=== PATIENT | male | born 1935 | race Caucasian/White ===

== ENCOUNTER → 2017-11-04 | Outpatient (CLI) | payer MEDICARE, OTHER ==
[~2017-11-04] MED LIST: ADULT LOW DOSE81 MG PO; ALTACE10 MG PO; ASPIRIN81 M2 PO; AVODART0.5 MG PO; COLESTID1 GM PO; COLESTIPOL; FLORINEF ACETA0.1 MG PO; FOLIC ACID1 MG PO; HYDROCODON-ACE1 EAC7 PO; JANUMET 50-1,01 EACH PO; JANUMET 50-5001 EACH PO; LOPRESSOR25 PO; MELATONIN3 MG PO; NEURONTIN 300300 M1 PO; NORVASC5 MG PO; PERCOCET 5-3251 EACH PO; PLAVIX 75 MG TA75 M1 PO; PRAVACHOL40 MG PO; PROSCAR 5MG TABL5 MG PO; TURMERIC500 M2 PO; VISION FORMULA1 EAC1 PO; VOLTAREN GEL 1100 G2 TOP; ZETIA10 MG PO
--- NOTE | 2017-11-19 13:59 | PAINCON ---
[facility] [address] [place] [address] PAIN MANAGEMENT CONSULTATION Name: MOLLY EVERETT [facility] JimenezFrantz#: [id number] Admission: 11/04/17 Attend Phys: Nicolle Tate MD Discharge: Date of : 36 Report #: [id number] THIS REPORT FOR: //name// CC: Beth Prado DATE OF SERVICE: 11/04/2017 CHIEF COMPLAINT: Low back pain and pain down into both hips. FOLLOWUP HISTORY: The patient is an 82-year-old gentleman who has been referred to the pain clinic for evaluation. The patient has pain and discomfort in the low back area. He is experiencing pain, which is radiating around into both hip areas. He describes it as a constant pain with some burning as well as numbness. He has undergone physical therapy. He has been experiencing the tingling sensation throughout both his hips. Occasionally, he experienced some weakness down into both legs, left side greater than right. He has been provided gabapentin. He is not sure to what level this medication is helpful. He has stopped participating in physical therapy at this juncture. He did not feel like he was getting a significant amount of relief. He actually felt like it made him worse. He did participate for about 14 sessions. He has undergone chiropractic treatment as well. He does note some pain and discomfort, if he presses in the low back area. ALLERGIES: VICODIN CAUSED SOME HALLUCINATIONS SIDE EFFECTS. CURRENT MEDICATIONS: Aspirin 81 mg 1 p.o. daily, Plavix 75 mg daily, Proscar 5 mg daily, folic acid 1 mg daily, Neurontin 300 mg b.i.d., melatonin 3 mg at bedtime, Lopressor 25 mg, Pravachol 40 mg, Altace 2.5 mg daily, Janumet 50/100 mg tablets, turmeric 500 mg, multivitamin. PAST MEDICAL HISTORY: Diverticulosis, peptic ulcer disease, orthostatic hypotension, gastroesophageal reflux, myocardial infarct, type 2 diabetes, and history of colon polyp. PAST SURGICAL HISTORY: Tonsillectomy in 1946; cholecystectomy in 1984; cardiac stent x 2 in 2000; cataract, right eye in 2013; prostate biopsy; and colonoscopy on 10/02/2016. FAMILY HISTORY: Mother is unknown. Father is unknown. Spouse is alive, age 71. Daughter alive, in good health. Son alive, in good health. FAMILY HISTORY: Diabetes, cancer, coronary artery disease, hypertension, 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 He is , lives with his . REVIEW OF SYSTEMS: Generally good health, fatigue, weakness, wears glasses, hearing loss/ringing in the ears, swelling of feet, ankles, hands, frequent urination, incontinence, dribbling, sexual difficulties, back pain, numbness and tingling sensation, memory loss, confusion, 12-point review of systems. LABORATORY DATA: MRI dated 10/17/2017: 1. L1-L2, there is a right posterior paracentral disk extrusion extending cephalad from the disk space. This causes mild ventral effacement of thecal sac, but does not demonstrate significant effect upon the neural elements. 2. L2-L3, there is moderate circumferential disk bulge. Advanced discogenic degenerative changes are present with extensive endplate signal changes. There is mild hypertrophic facet arthrosis and ligamentum flavum hypertrophy. These findings collectively producing mild overall central canal stenosis as well as a mild left-sided neural foraminal narrowing. There is mild left-sided and minimal right-sided lateral recess enhancement or effacement. 3. L3-L4, there is mild hypertrophic facet arthrosis and ligamentum flavum hypertrophy. There is moderate posterior endplate spurring. Combination with aforementioned mild degenerative retrolisthesis. This finding produces mild ventral effacement of the thecal sac and left lateral recess. There is unbg-au-migmyqty bilateral neural foraminal narrowing. 4. L4-L5, there is advanced hypertrophic facet arthrosis and moderate ligamentum flavum hypertrophy. There is moderate posterior endplate spurring as well as nhwe-zm-rlqbqtoc circumferential disk bulge. There is some extension of the disk bulge into the foraminal locations bilaterally. This finding collectively produces moderate right-sided and gxbo-qx-zrrodihd left-sided neural foraminal narrowing. There is also moderate right lateral effacement of thecal sac secondary to the hypertrophic facet arthrosis. 5. At the L5-S1 level, there is moderate posterior endplate spurring with circumferential disc bulge. There is also moderate hypertrophic facet arthrosis and mild ligamentum flavum hypertrophy. These findings collectively produce moderate right-sided and mild left-sided neural foraminal narrowing. There is moderate right lateral recess effacement. PAIN CLINIC ASSESSMENT: 1. The patient is not being treated for rheumatoid arthritis, does have some arthritic changes in the lower portion of his back as evidenced on an MRI. 2. Height 5 feet 9 inches, weight 177 pounds, BMI is 26. 3. Vital signs: Blood pressure 152/89, heart rate 64, respiratory rate 16, room air saturation 96%, temperature 98.0. 4. Pain intensity 08/16. 5. Fall risk. The patient has not fallen in the last 3 months. 6. Blood thinner. The patient is on Plavix. 7. Opioids therapy greater than 6 weeks. The [place] [address] PAIN MANAGEMENT CONSULTATION Name: MOLLY EVERETT Room: [facility]#: [id number] Admission: 11/04/17 Attend Phys: Nicolle Tate MD Discharge: Date of : 36 Report #: [id number] therapy greater than 6 weeks. 8. Risk assessment tool. 9. Functional assessment tool. 10. Recreational drug use. The patient denies use of recreational drugs. 11. Tobacco: The patient denies use of tobacco at this juncture. 12. Alcohol: The patient denies use of alcoholic beverages at this juncture. PHYSICAL EXAMINATION: GENERAL: The patient is a well-developed, well-nourished white male. Appears his stated age. He is alert and oriented x 3. HEENT: Normocephalic, atraumatic. Extraocular eye muscles intact. Sclerae is nonicteric. Hearing is within normal limits. The patient has bilateral hearing aids. Mucous membranes are moist. NECK: Without adenopathy, JVD or bruits. CHEST: Clear to auscultation. HEART: Regular rate. S1, S2. ABDOMEN: Nontender. EXTREMITIES: Upper extremities, judged to be 5/5 for the major muscle groups in the upper extremity. No sensory changes. Muscle bulk is symmetrical. MUSCULOSKELETAL: Without significant scoliosis, kyphosis, or lordosis. The patient has some mid back discomfort in the mid thoracic area, also has some pain and discomfort in the lower portion of his back with pain radiating down into his left as well as into his right buttocks with some stabbing sensation as well as some needles and pins discomfort. IMPRESSION: 1. Low back pain with pain radiating down into the left as well as into the right buttocks. 2. Diabetes type 2. 3. Coronary artery disease -- myocardial infarct. 4. History of diverticulosis. 5. Peptic ulcer disease. 5. Gastroesophageal reflux disease. 6. Hypertension. RECOMMENDATIONS: We discussed treatment options with the patient. He has continued to have pain and discomfort in the lower portion of his back. Has some symptomatology consistent with spinal stenosis in his MRI findings. Has pain and discomfort, which is radiating to his left and right hip, left side more problematic than right. Has noted some weakness in his lower extremity. At this juncture, we will consider an epidural steroid injection. Risks and benefits of an epidural steroid injection were discussed. Possible complications of the procedure reviewed with the patient. He will return to the pain clinic at which time we will consider pursuing an epidural steroid injection to improve the low back pain and discomfort, which he is experiencing. He is also experiencing some myofascial pain. We may consider the injection of [facility] [address] [place] [address] PAIN MANAGEMENT CONSULTATION Name: MOLLY EVERETT [facility] [id number] Admission: 11/04/17 Attend Phys: Nicolle Tate MD Discharge: Date of : 36 Report #: [id number] trigger points in this area as well. The patient will return at which time we will then continue to evaluate whether or not trigger point injections or an epidural steroid injection, at this juncture would be the most efficacious. We would like to thank you for letting us participate in his care. We hope he continues to improve. <ELECTRONICALLY SIGNED> By: Nicolle Tate MD 11/19/17 1359 1502 2113N. Moustapha Tate MD /[facility]
== END ==
LOC: M.PC 00:08
DX: M54.5 Low back pain (principal); M25.552 Pain in left hip; M25.551 Pain in right hip; E11.9 Type 2 diabetes mellitus without complications; I10 Essential (primary) hypertension; I25.10 Atherosclerotic heart disease of native coronary artery without angina pectoris; K21.9 Gastro-esophageal reflux disease without esophagitis; K27.9 Peptic ulcer, site unspecified, unspecified as acute or chronic, without hemorrhage or perforation

== ENCOUNTER → 2017-11-11 | Outpatient (CLI) | payer MEDICARE, OTHER ==
--- NOTE | 2017-11-19 14:14 | PAINCON ---
[address] [address] PAIN MANAGEMENT CONSULTATION Name: MOLLY EVERETT Room: [facility] [place] BarbaraTessaDanyaTessa#: [id number] Admission: 11/11/17 Attend Phys: Nicolle Tate MD Discharge: Date of : 36 Report #: [id number] THIS REPORT FOR: //name// CC: Beth Tate DATE OF SERVICE: 11/11/2017 FOLLOWUP COMPLAINT: Pain down into the hips. FOLLOWUP HISTORY: The patient is an 82-year-old gentleman who has been seen in the Pain Clinic because of pain and discomfort in the low back area. He has been experiencing pain, which is radiating down into both hips. Describes it is constant. There is some burning component of it as well. He has already undergone physical therapy. His pain continues to remain. Has some tingling sensation throughout both of his hips. Occasionally, he experiences some pain and weakness down in both legs. Left is worse when that problem occurs. Gabapentin has been taken b.i.d. He is not sure that he has noticed a significant change since starting this medication. He is no longer going to physical therapy given he continued to have pain in spite of the treatment course. Notes that certain areas of pressure in his low back reproduces pain and discomfort. ALLERGIES: VICODIN CAUSES SOME HALLUCINATION AND SIDE EFFECTS. CURRENT MEDICATIONS: Aspirin 81 mg 1 p.o. daily, Plavix 75 mg daily, Proscar 5 mg daily, folic acid 1 mg daily, Neurontin 300 mg b.i.d., melatonin 3 mg at bedtime, Lopressor 25 mg, Pravachol 40 mg, Altace 2.5 mg daily, Janumet 50/100 mg tablets, turmeric 500 mg, multivitamin. PAIN CLINIC ASSESSMENT: 1. The patient is not being treated for rheumatoid arthritis, does have some arthritic changes in his lower back evidenced on MRI. 2. Height 5 feet 9 inches, weight 176 pounds, BMI is 27. 3. VITAL SIGNS: Blood pressure is 181/93, heart rate 63, respiratory rate 16, room air saturation 99%, temperature 97.8. Pain intensity at 2/10 when sitting, rises to 7-8 in the morning when he awakens. 4. Fall risk. The patient has not fallen in the last 3 months. 5. Blood thinner. The patient is not on Plavix or blood thinning agent. 6. Opioid therapy greater than 6 weeks. The patient is not on opioid therapy for greater than 6 weeks. 7. Risk assessment tool. 8. Functional assessment tool. 9. Recreational drug use. The patient denies use of recreational drugs. 10. Tobacco: The patient denies use of tobacco at this juncture. 11. Alcohol: The patient [place] [address] PAIN MANAGEMENT CONSULTATION Name: MOLLY EVERETT Room: [facility]#: [id number] Admission: 11/11/17 Attend Phys: Nicolle Tate MD Discharge: Date of : 36 Report #: [id number] PHYSICAL EXAMINATION: GENERAL: The patient is a well-developed, well-nourished white male. Appears his stated age. He is alert and oriented x 3. Speech is fluent. HEENT: Normocephalic, atraumatic. Extraocular eye muscles intact. Sclerae nonicteric. Hearing is within normal limits. Mucous membranes are moist. NECK: Without adenopathy, JVD or bruits. CHEST: Clear to auscultation. HEART: Regular rate. S1, S2. ABDOMEN: Nontender. EXTREMITIES: Upper extremities showed to be 5/5 for the major muscle groups in the upper extremity. No sensory changes noted. Muscle bulk is symmetrical. ADDENDUM MUSCULOSKELETAL: Without significant scoliosis, kyphosis or lordosis. The patient has some mild discomfort in the thoracic area. The patient has some pain and discomfort, which is radiating down the lateral side of his buttocks. IMPRESSION: 1. Low back pain with radiation down to the left as well as into the right buttocks area -- myofascial facial. 2. Diabetes type 2. 3. Coronary artery disease- -- myocardial infarct history. 4. History of diverticulosis. 5. Peptic ulcer disease. 6. Gastroesophageal reflux disease. 7. Hypertension. RECOMMENDATIONS: We discussed treatment options with the patient. Risks and benefits of a myofascial trigger point was discussed. The patient has pain and discomfort in the left lower back. Palpation in the area of the latissimus dorsi, gluteus marquis and posterior iliac spine areas are noted. Palpation in this area reproduces pain and discomfort. We discussed use of a trigger point injection to help with this. The patient elects to proceed with the injection. Possible complications, which include but are not limited to infection, worsening of pain, no improvement in pain, bleeding and infection were discussed. The patient elects to proceed. PROCEDURE NOTE: He was then assisted in getting on the table. He was sitting perpendicular to the table with his feet resting on the chair. His back was sterilely prepped with a chlorhexidine solution. Palpation reproduces pain and discomfort and a trigger point noted in the area of the posterior superior iliac spine and the gluteus marquis. A 25-gauge needle was then advanced to the area of discomfort. The patient states that this did reproduce his discomfort. A total of 80 mg of Depo-Medrol with 10 mL of 0.5% bupivacaine was used to inject [facility] [address] [place] [address] PAIN MANAGEMENT CONSULTATION Name: KARLOSMOLLY House Ebony Room: [facility]#: [id number] Admission: 11/11/17 Attend Phys: Nicolle Tate MD Discharge: Date of : 36 Report #: [id number] this area. His pain decreased to 0 at the time of discharge. He will follow up in the future as needed. He will also monitor his blood sugars. We explained that steroid medications can temporarily elevate blood sugars. States that he would watch and manage this. We would like to thank you for letting us participate in his care. We hope he continues to improve. <ELECTRONICALLY SIGNED> By: Nicolle Tate MD 11/19/17 1414 1555 1807N. Moustapha Tate MD /[facility]
== END ==
LOC: M.PC 01:59
DX: M79.1 Myalgia (principal); M25.551 Pain in right hip; M25.552 Pain in left hip; Z88.8 Allergy status to other drugs, medicaments and biological substances; Z79.899 Other long term (current) drug therapy; Z79.01 Long term (current) use of anticoagulants; F11.20 Opioid dependence, uncomplicated; M54.5 Low back pain; E11.9 Type 2 diabetes mellitus without complications; I25.10 Atherosclerotic heart disease of native coronary artery without angina pectoris; I21.3 ST elevation (STEMI) myocardial infarction of unspecified site; K21.9 Gastro-esophageal reflux disease without esophagitis; I10 Essential (primary) hypertension; K27.9 Peptic ulcer, site unspecified, unspecified as acute or chronic, without hemorrhage or perforation

== ENCOUNTER → 2017-11-20 | Outpatient (CLI) | payer MEDICARE, OTHER ==
--- NOTE | 2017-12-04 15:18 | PAINCON ---
[address] [address] PAIN MANAGEMENT CONSULTATION Name: MOLLY EVERETT Room: [facility] Shannon#: [id number] Admission: 11/20/17 Attend Phys: Nicolle Tate MD Discharge: Date of : 36 Report #: [id number] THIS REPORT FOR: //name// CC: Beth Tate DATE OF SERVICE: 11/20/2017 FOLLOWUP COMPLAINT: Pain in the back is better, but still there it is more dull and it goes across to the other side as well. FOLLOWUP HISTORY: The patient is an 82-year-old gentleman who has been seen in the pain clinic because of pain and discomfort in his low back area. As you recall, he has undergone physical therapy. He has been having pain and discomfort in both hips. Has some pain in the low back area, which was felt to be myofascial in nature, underwent a trigger point injection at the last visit. Noted some improvement in his pain. He notes that the quality of the pain has changed. Palpation in the lower portion of his back and still reproduced pain and discomfort. He has had no complications from that. He does have diabetes. He did not notice any real changes in his sensorium. He does not routinely measure his blood sugars. Overall, he feels that there was probably no real change in his blood sugars. He states that his A1c at the last visit was about 7. Feels that the Neurontin is helpful. He does not have any problems with it. He has had physical therapy, but tries to continue do stretching, but he does not continue to go to physical therapy at this point. ALLERGIES: VICODIN CAUSES SOME HALLUCINATION SIDE EFFECTS. MEDICATIONS: Aspirin 81 mg 1 p.o. daily, Plavix 75 mg daily, Proscar 5 mg daily, folic acid 1 mg daily, Neurontin 300 mg b.i.d., melatonin 3 mg at bedtime, Lopressor 25 mg, Pravachol 40 mg, Altace, 2.5 mg daily, Janumet 50/100, turmeric 500 mg, multivitamin and Zetia 10 mg. PAIN CLINIC ASSESSMENT: 1. The patient is not being treated for rheumatoid arthritis, but does have some arthritic changes in lower back evidenced by MRI. 2. Height 5 feet 5 inches, weight 174 pounds, BMI is 28. 3. Vital signs: Blood pressure 143/70, heart rate 68, respiratory rate 16, room air saturation 95% and temperature 97.5. 4. Pain score, the patient rates his pain as a 2/10. 5. Fall risk. The patient has not fallen in the last 3 months. 6. Blood thinner. The patient is on Plavix a blood thinning agent. 7. Opioid therapy greater than 6 weeks. The patient is not on her opioid therapy. 8. Risk assessment tool, low for opioids. 9. [place] [address] PAIN MANAGEMENT CONSULTATION Name: MOLLY EVERETT Room: [facility]#: [id number] Admission: 11/20/17 Attend Phys: Nicolle Tate MD Discharge: Date of : 36 Report #: [id number] 10. Recreational drug use. The patient denies use of recreational drugs. 11. Tobacco: The patient denies use of tobacco. 12. Alcohol: The patient denies use of alcoholic beverages. PHYSICAL EXAMINATION: GENERAL: The patient is a well-developed, well-nourished white male. He is alert and oriented x 3. Affect is appropriate. Speech is fluent. HEENT: Normocephalic, atraumatic. Extraocular muscles intact. The patient wears glasses. Sclerae nonicteric. Good range of motion. LUNGS: Clear to auscultation without rhonchi. HEART: Regular rate. ABDOMEN: Nontender. MUSCULOSKELETAL: Without significant scoliosis, kyphosis or lordosis. The patient has pain and discomfort in the left posterior superior iliac spine area in the buttocks. Palpation in this area reproduces pain and discomfort and similar pain is noted on the contralateral right side. Palpation in the posterior superior iliac spine area causes reproduction of this pain, which is myofascial in nature. Upper extremities within normal limits, 5/5. Lower extremity muscle strength is generally 5/5. ASSESSMENT: 1. Low back pain with pain on the right and left side, which is myofascial in nature. 2. Type 2 diabetes. 3. Coronary artery disease, status post myocardial infarction history. 4. History of diverticulitis. 5. Peptic ulcer disease. 6. Gastroesophageal reflux history. 7. Hypertension. RECOMMENDATIONS: We discussed treatment options with the patient. Risks and benefits of the procedure were again discussed. The patient appears to have pain, which is more myofascial in nature. Palpation can reproduce this pain. He is on Plavix at this juncture. He will stop taking the Plavix and return to the pain clinic for additional treatment. He has been advised on use of a tennis ball to help massage this areas. Sometimes massaged with the patient lying on the floor or rolling up and down the wall can be helpful. He will stop this medication and return to the pain clinic at which time he will then undergo trigger point injections to the left and right side. We would like to thank you for letting us participate in his care. We hope he continues to improve. <ELECTRONICALLY SIGNED> By: Nicolle Tate MD 12/04/17 1518 [id number] 1120N. Moustapha Tate MD /nt
== END ==
LOC: M.PC 01:09
DX: I10 Essential (primary) hypertension (principal); E11.9 Type 2 diabetes mellitus without complications; I25.10 Atherosclerotic heart disease of native coronary artery without angina pectoris; M54.42 Lumbago with sciatica, left side; M79.1 Myalgia; K27.9 Peptic ulcer, site unspecified, unspecified as acute or chronic, without hemorrhage or perforation

== ENCOUNTER → 2017-11-27 | Outpatient (CLI) | payer MEDICARE, OTHER ==
--- NOTE | 2017-12-04 15:18 | PAINCON ---
[facility] [address] [place] [address] PAIN MANAGEMENT CONSULTATION Name: MOLLY EVERETT Room: [facility] BarbaraFrantz#: [id number] Admission: 11/27/17 Attend Phys: Nicolle Tate MD Discharge: Date of : 36 Report #: [id number] THIS REPORT FOR: //name// CC: Beth Tate DATE OF SERVICE: 11/27/2017 PRIMARY CARE PHYSICIAN: Dr. Beth Cardenas. FOLLOWUP COMPLAINT: Pain improved somewhat, but I am still having pain in the side and back. FOLLOWUP HISTORY: The patient is an 82-year-old gentleman who has been seen in the pain clinic because of some low back pain and discomfort. Notes that the pain is still problematic on his left hip area, left side greater than right. Notes it as a dull piercing type of pain. It has changed its character. There is no longer sharp. Feels that the gabapentin is helpful. He has had no complication from the trigger point injection, but does continue to have discomfort, which he feels problematic and interferes with his activities of daily living. He would like to proceed with another treatment at this point. As you recall, he has undergone physical therapy. He rates his pain as a 1/10 today when he is not active. He does have diabetes. He did not notice a significant change in his blood sugars after the last injection. He continues to use the Neurontin. We encouraged him to continue with stretching exercises. ALLERGIES: VICODIN CAUSES SOME HALLUCINATION AND SIDE EFFECTS. CURRENT MEDICATIONS: Aspirin 81 mg 1 p.o. daily, Plavix 75 mg daily. The patient has stopped this medication prior to coming to the Pain Clinic today, Proscar 5 mg daily, folic acid 1 mg daily, Neurontin 300 mg b.i.d., melatonin 3 mg at bedtime, Lopressor 25 mg, Pravachol 40 mg, Altace 2.5 mg daily, Janumet 50/100, turmeric 500 mg, multivitamin, Zetia 10 mg. PAIN CLINIC ASSESSMENT: 1. The patient is not being treated for osteoarthritis. Does have some arthritic changes in his low back by way of MRI. 2. Height 5 feet 6 inches, weight 173 pounds, BMI is 25. 3. Vital signs: Blood pressure 121/76, heart rate 69, respiratory rate 16, room air saturation 96% and temperature 97.7. Pain score, the patient rates as a 1/10. 4. Fall risk. The patient has not fallen in the last 3 months. 5. Blood thinner. The patient is on Plavix and has stopped taking this medication with the thought of having injection today. 6. Opioid therapy greater than 6 weeks. The patient is not on opioid therapy. 7. Risk assessment tool, [place] [address] PAIN MANAGEMENT CONSULTATION Name: MOLLY EVERETT Room: [facility]#: [id number] Admission: 11/27/17 Attend Phys: Nicolle Tate MD Discharge: Date of : 36 Report #: [id number] 8. Functional assessment tool. 9. Recreational drug use. The patient denies use of recreational drugs. 10. Tobacco: The patient denies use of tobacco. 11. Alcohol: The patient denies use of alcoholic beverages. PHYSICAL EXAMINATION: GENERAL: The patient is a well-developed, well-nourished white male. Appears his stated age. He is alert and oriented x 3. His affect is appropriate. Speech is fluent. HEENT: Normocephalic, atraumatic. Extraocular eye muscles intact. Sclerae nonicteric. The patient is wearing glasses. Good range of motion of his neck. LUNGS: Clear to auscultation without rhonchi. HEART: Regular rate. ABDOMEN: Nontender. MUSCULOSKELETAL: Without significant scoliosis, kyphosis, lordosis. The patient is able to move quite easily. Has some pain and discomfort in the area of the left posterior superior iliac spine area. Palpation in this area does reproduce a component of his pain. The patient has some pain on the contralateral right side, but feels that the left side is that which is most problematic. NEUROLOGICAL: Upper extremity strength is judged to be 5/5 with the symmetry without neurological deficits. Lower extremity muscle strength 5/5. IMPRESSION: 1. Low back pain on the left and right side. Left side, most problematic at this juncture. 2. Type 2 diabetes. 3. Coronary artery disease, status post myocardial infarct history. 4. History of diverticulitis. 5. Peptic ulcer disease. 6. Gastroesophageal reflux history. 7. Hypertension. RECOMMENDATIONS: We discussed treatment options with the patient. Risks and benefits of trigger point injections were discussed. Possible complications of these, which could include infection, increased muscle soreness, improvement in pain, no improvement in pain, exacerbation of blood glucose levels. The patient states that he feels that the pain is still problematic and would like to proceed with this. He has elected to undergo the treatment today. We discussed the possible complication as disclosed above. He elects to proceed. He was taken to the procedure area. He was assisted in getting on the fluoroscopy table. He was sitting perpendicular to the table. Care was placed under his feet. He leaned forward. The trigger point was noted in the area of the posterior superior iliac spine on the left. The patient states that this did reproduce his discomfort. A 25-gauge needle was then advanced into the area of discomfort. Total of 80 mg Depo-Medrol with 10 mL of 0.25% [place] [address] PAIN MANAGEMENT CONSULTATION Name: MOLLY EVERETT Room: [facility]#: [id number] Admission: 11/27/17 Attend Phys: Nicolle Tate MD Discharge: Date of : 36 Report #: [id number] injected. The patient tolerated the procedure well. There were no complications. He remained in the pain clinic for an appropriate amount of time. He will follow up in the future as needed. We would like to thank you for letting us participate in his care. The patient will renew his use of Plavix. <ELECTRONICALLY SIGNED> By: Nicolle Tate MD 12/04/17 1518 [id number]. Moustapha Tate MD /nt
== END | disposition home or self-care (01) ==
LOC: M.PC 03:57
DX: M79.1 Myalgia (principal); M54.5 Low back pain; E11.9 Type 2 diabetes mellitus without complications; I10 Essential (primary) hypertension; I25.10 Atherosclerotic heart disease of native coronary artery without angina pectoris; K21.9 Gastro-esophageal reflux disease without esophagitis; Z87.19 Personal history of other diseases of the digestive system; Z79.899 Other long term (current) drug therapy; Z79.82 Long term (current) use of aspirin; Z88.8 Allergy status to other drugs, medicaments and biological substances; Z98.890 Other specified postprocedural states

== ENCOUNTER → 2017-12-09 | Outpatient (CLI) | payer MEDICARE, OTHER ==
--- NOTE | 2018-01-07 14:16 | PAINCON ---
[facility] [address] [place] [address] PAIN MANAGEMENT CONSULTATION Name: MOLLY EVERETT Room: [facility] Ortega#: [id number] Admission: 12/09/17 Attend Phys: Nicolle Tate MD Discharge: Date of : 36 Report #: [id number] THIS REPORT FOR: //name// CC: Beth Tate DATE OF SERVICE: 12/09/2017 FOLLOWUP COMPLAINT: "Pain has improved since the last visit, but I still felt like there is weakness in my legs." FOLLOWUP HISTORY: The patient is an 82-year-old gentleman who has been seen in the pain clinic because of myofascial pain involving the low back area. He has undergone trigger point injections to the myofascial trigger points in the low back area. Overall, he feels that things have improved somewhat. He continues to have pain, which he rates as a 4/10. He feels that there is some weakness in his legs. Sometimes sitting in certain position, he notes some pain and discomfort in his hips bilaterally. Feels that the gabapentin medication is helpful. Overall, he has had no complications from the procedure. He states that he has undergone physical therapy in the past and will try to reproduce some of the exercise that he was given. Does feel like his diabetes is stable. Has had no significant changes in his blood as a result of the trigger point injections using triamcinolone. Continues to try to do some stretching exercises. ALLERGIES: VICODIN CAUSED SOME HALLUCINATIONS AND SIDE EFFECTS. MEDICATIONS: Aspirin 81 mg p.o. daily, Plavix 75 mg ____. Proscar 5 mg daily, folic acid 1 mg daily, Neurontin 300 mg b.i.d., melatonin 3 mg at bedtime, Lopressor 25 mg, Pravachol 40 mg, Altace 2.5 mg daily, Janumet 5/150 ____, Turmeric 500 mg, multivitamin, Zetia 10 mg. PAIN CLINIC ASSESSMENT: 1. The patient has not been treated for osteoarthritis. Does have some arthritic changes in his low back by the MRI evaluation. Height was 5 feet 9 inches, weight 171 pounds, BMI is 25.3. 2. Vital signs: Blood pressure 135/60, heart rate 73, respiratory rate 16, room air saturation is 94%, temperature 98.8. 3. Fall risk. The patient has not fallen in the last 3 months. 4. Blood thinner. The patient is on Plavix medication, continues to use it as prescribed. 5. Opioid. The patient is not on a regular opioid medications. 6. Risk assessment tool. 7. Opioid risk low. 8. Functional assessment tool. 9. Recreational drug use. The patient denies [place] [address] PAIN MANAGEMENT CONSULTATION Name: MOLLY EVERETT Room: [facility]#: [id number] Admission: 12/09/17 Attend Phys: Nicolle Tate MD Discharge: Date of : 36 Report #: [id number] 10. Tobacco: The patient denies use of tobacco. 11. Alcohol. The patient denies use of alcoholic beverages. PHYSICAL EXAMINATION: GENERAL: The patient is a well-developed, well-nourished white male. Appears his stated age. He is alert and oriented x 3. His affect is appropriate. Speech is fluent. HEENT: Normocephalic, atraumatic. Extraocular eye muscles intact. Sclerae nonicteric. The patient is wearing glasses. He has good range of motion of his neck. LUNGS: Clear to auscultation without rhonchi. HEART: Regular rate. ABDOMEN: Nontender. MUSCULOSKELETAL: Without significant scoliosis, kyphosis or lordosis. The patient is able to move easily. Has some discomfort in the low back area, but less than what we initially saw him. Palpation in the low back area does produce some pain and discomfort in the left and right posterior superior iliac spine areas. NEUROLOGIC: Within normal limits, 5/5 for the major muscle of the upper extremity without neurological deficit. Lower extremity muscle strength is judged 5/5, although the patient complains of feeling of weakness in his hips bilaterally. IMPRESSION: 1. Low back pain of a myofascial nature, improved with myofascial trigger point injection. 2. Type 2 diabetes. 3. Coronary artery disease, status post myocardial infarct. 4. History of diverticulitis. 5. History of peptic ulcer disease. 6. History of gastroesophageal reflux. 7. Hypertension. RECOMMENDATIONS: We discussed treatment options with the patient. Overall, things have improved for him. He has noted an improvement in his low back pain. He rates it as a 4/10 at this juncture. Does still have some perception of some weakness. I think for him to resume physical therapy type activities would be helpful in that regard. At this juncture, I think we will try continue with a conservative approach. He will follow up in the pain clinic should his pain escalate and become more problematic. He should return if he has any concerns. We would like to thank you for letting us participate in his care. We hope he continues to improve. <ELECTRONICALLY SIGNED> By: Nicolle Tate MD 01/07/18 1416 [id number]. Moustapha Tate MD /HEMAL
== END ==
LOC: M.PC 05:29
DX: M54.5 Low back pain (principal); E11.9 Type 2 diabetes mellitus without complications; I25.10 Atherosclerotic heart disease of native coronary artery without angina pectoris; I10 Essential (primary) hypertension; K21.9 Gastro-esophageal reflux disease without esophagitis

== ENCOUNTER → 2018-01-13 | Outpatient (CLI) | payer MEDICARE, OTHER ==
--- NOTE | 2018-02-04 16:41 | PAINCON ---
[address] [address] PAIN MANAGEMENT CONSULTATION Name: MOLLY EVERETT Room: [facility] BarbaraFrantz#: [id number] Admission: 01/13/18 Attend Phys: Nicolle Tate MD Discharge: Date of : 36 Report #: [id number] THIS REPORT FOR: //name// CC: Beth Tate DATE OF SERVICE: 01/13/2018 CHIEF COMPLAINT: Low back and hip pain. HISTORY OF PRESENT ILLNESS: The patient is an 82-year-old gentleman who has been seen in the Pain Clinic because of myofascial pain involving his low back area. He has been found to have trigger point areas and treated with myofascial injections. He continues to have pain and rates it as a 2-8/10 depending on his activity level. It involves his low back on the left side with some pain down into the hip area. He was seen his physician with the thought that he may have a kidney infection. Primary care has provided him with an antibiotic. He has given a urine test and has undergone PSA testing. He feels that his legs are weak and has some difficulty in ambulation. Continues to have pain and discomfort in the low back area. Gabapentin use 300 mg b.i.d., possibly helpful with hard to determine at this juncture. He does have diabetes. ALLERGIES: VICODIN caused some hallucinations and side effects. MEDICATIONS: Aspirin 81 mg daily, Plavix 75 mg, Proscar 5 mg, folic acid 1 mg, Neurontin 300 mg b.i.d., melatonin 3 mg at bedtime, Lopressor 25 mg, Pravachol 40 mg, Altace 2.5 mg, Janumet 5/150, turmeric 500 mg, multivitamin, Zetia 10 mg. PAIN CLINIC ASSESSMENT: 1. The patient is not being treated for osteoarthritis. He does have some arthritic changes in his low back area by MRI. 2. Height 5 feet 9 inches, weight 176 pounds, BMI is 26. 3. Vital signs 142/74, heart rate 73, respiratory rate 18, room air saturation 95%, temperature 97.9. 4. Fall risk. The patient has not fallen in the last 3 months. 5. Blood thinner. The patient is on Plavix. 6. Opioid. The patient is not on a regular opioid therapy. 7. Risk assessment tool. 8. Opioid low for use of opioids. 9. Functional assessment tool. 10. Recreational drug use. The patient denies use of recreational drugs. 11. Tobacco: The patient denies use of tobacco. 12. Alcohol: The patient denies use of alcoholic beverages. PHYSICAL EXAMINATION: GENERAL: The patient is a well-developed, well-nour[place] [address] PAIN MANAGEMENT CONSULTATION Name: MOLLY EVERETT Room: [facility]#: [id number] Admission: 01/13/18 Attend Phys: Nicolle Tate MD Discharge: Date of : 36 Report #: [id number] his stated age. He is alert and oriented x 3. His affect is appropriate. Speech is fluent. HEENT: Normocephalic, atraumatic. Extraocular eye muscles intact. Sclerae nonicteric. The patient is wearing glasses. NECK: Has good range of motion of his neck. LUNGS: Clear to auscultation without rhonchi or rales. HEART: Regular rate. S1, S2. ABDOMEN: Nontender. MUSCULOSKELETAL: Without significant scoliosis, kyphosis or lordosis. The patient has some discomfort in the lower portion of his back. Palpation in the area of the left posterior superior iliac spine area does cause some reproduction of his pain and discomfort. Also, has some pain in the right superior iliac spine area. Muscle strength in the lower extremities, the patient notes some weakness and inability to lift his left leg over the right. Complains of some weakness in his hips bilaterally. IMPRESSION: 1. Chronic low back pain. 2. Type 2 diabetes. 3. Coronary artery disease, status post myocardial infarct. 4. History of diverticulitis. 5. History of peptic ulcer disease. 6. History of gastroesophageal reflux. 7. Hypertension. RECOMMENDATION: The patient is taking an antibiotic for possibility of kidney infection. At this juncture, we will proceed with an injection. We discussed the possible complications of antibiotic use in conjunction with steroids. There is possibility of worsening of an infection within that situation. The patient's is somewhat concerned that he is just sitting in his chair watching TV. He would like to continue to increase his activity level. Feels that this pain continues to impede him. He will follow up in the Pain Clinic after he has finished with the antibiotic therapy. At that time, we will consider possibility of doing another injection to the left hip/iliac crest area for pain. <ELECTRONICALLY SIGNED> By: Nicolle Tate MD 02/04/18 1641 1416 [id number]. Moustapha Tate MD /nt
== END ==
LOC: M.PC 05:01
DX: M54.5 Low back pain (principal); G89.29 Other chronic pain; I10 Essential (primary) hypertension; E11.9 Type 2 diabetes mellitus without complications; I25.10 Atherosclerotic heart disease of native coronary artery without angina pectoris; K21.9 Gastro-esophageal reflux disease without esophagitis

== ENCOUNTER → 2018-01-20 | Outpatient (CLI) | payer MEDICARE, OTHER ==
--- NOTE | 2018-02-04 16:41 | PAINCON ---
[facility] [address] [place] [address] PAIN MANAGEMENT CONSULTATION Name: MOLLY EVERETT Room: [facility] BarbaraFrantz#: [id number] Admission: 01/20/18 Attend Phys: Nicolle Tate MD Discharge: Date of : 36 Report #: [id number] THIS REPORT FOR: //name// CC: eBth Tate DATE OF SERVICE: 01/20/2018 CHIEF COMPLAINT: Continued low back pain in the hips. FOLLOWUP HISTORY: The patient is an 82-year-old gentleman who has been followed in the pain clinic because of chronic pain in the low back area. It involves his low back area. It was improved somewhat with trigger point injections. He does now have pain that continues to be problematic. It involves his left hip in the upper iliac crest area. He finds that the pain is still problematic and rates it as a 2/10. Most problematic when he is engaging in activities of daily living. He had some concerned about it being his kidney. He did go to his physician. He has been treated with antibiotic for kidney infection. He does feel that his pain is still constant. Finds that gabapentin 300 mg b.i.d., may be somewhat helpful. Does not have any problems with that medication. ALLERGIES: VICODIN CAUSES SOME HALLUCINATION AND SIDE EFFECTS. CURRENT MEDICATIONS: Aspirin 81 mg daily, Plavix 75 mg, Proscar 5 mg daily, folic acid 1 mg daily, Neurontin 300 mg b.i.d., melatonin 3 mg at bedtime, Lopressor 25 mg, Pravachol 40 mg, Altace 2.5 mg, Janumet 5/150, turmeric 500 mg, multivitamin, Zetia. PAIN CLINIC ASSESSMENT: 1. The patient has not been treated for osteoarthritis. Does have some arthritic changes in his back by MRI evaluation. 2. Height 5 feet 9 inches, weight 175 pounds, BMI 25.9. 3. Vital signs: Blood pressure 143/77, heart rate 71, respiratory rate 16, room air saturation 95%, temperature 97.8. 4. Pain score 2/10. 5. Fall risk. The patient has not fallen in the last 3 months. 6. The patient on a blood thinner. The patient does take Plavix. 7. Opioid, the patient denies regular use of opioid medications. 8. Risk assessment tool, low risk for opioid use. 9. Functional assessment tool. 10. Recreational drug use. The patient denies use of recreational drugs. 11. Tobacco: The patient denies use of tobacco. 12. Alcohol: The patient denies use of alcoholic beverages. PHYSICAL EXAMINATION: GENERAL: The patient is a well-developed, well-[place] [address] PAIN MANAGEMENT CONSULTATION Name: MOLLY EVERETT Room: [facility]#: [id number] Admission: 01/20/18 Attend Phys: Nicolle Tate MD Discharge: Date of : 36 Report #: [id number] his stated age. He is alert and oriented x3. His affect is appropriate. Speech is fluent. HEAD, EYES, EARS, NOSE, AND THROAT: Normocephalic, atraumatic. Extraocular eye muscles intact. Sclerae nonicteric. The patient is wearing glasses. Has good range of motion of his neck. Wears hearing aids bilaterally. LUNGS: Clear to auscultation without rhonchi. HEART: Regular rate. ABDOMEN: Nontender. MUSCULOSKELETAL: Without significant scoliosis, kyphosis or lordosis. The patient has 5/5 muscle strength in the upper extremities. Lower extremity 4+/5 on the left, 5/5 on the right. Palpation near the iliac crest on the left side and in the area of the gluteus marquis and latissimus dorsi are sore. Palpation in these areas do reproduce a portion of the patient's pain. The patient has difficulty lifting his left leg to cross over to the right leg. He has some swelling in his lower extremities. LABORATORY FINDINGS: X-ray hip 2 views with pelvis bilaterally performed on 01/16/2018, reveals no acute fracture or dislocation. Mild degenerative changes are seen in the hips bilaterally. Alignment is maintained. Degenerative changes are noted in the lower spine. SI joints and pubic symphysis. The soft tissues are within normal limits. IMPRESSION: 1. Low back pain, which appears to be myofascial in nature involving the left iliac crest area. 2. Diabetes type 2. 3. Coronary artery disease, status post myocardial infarct with 2 stents and history of 2 MIs. 4. History of diverticulitis. 5. History of peptic ulcer disease. 6. History of gastroesophageal reflux. 7. Hypertension. RECOMMENDATIONS: We discussed treatment options with the patient. We will have the patient return to the pain clinic for evaluation. He will stop the antibiotic. He will return to the pain clinic after he has stopped the antibiotic. He checked with his primary to make sure that the renal concern has resolved. We will consider the injection and injection to the affected side. The patient is not having pain that is radiating down into his leg. It appears to be myofascial in nature at this juncture. The patient is unable to take or is reluctant to take an opioid medication given his past history. We will continue with a conservative approach. [facility] [address] [place] [address] PAIN MANAGEMENT CONSULTATION Name: MOLLY EVERETT Room: [facility] Ortega#: [id number] Admission: 01/20/18 Attend Phys: Nicolle Tate MD Discharge: Date of : 36 Report #: [id number] 02/03/18: Report amended for demographic error. <ELECTRONICALLY SIGNED> By: Nicolle Tate MD 02/04/18 1641 [id number]. Moustapha Tate MD /PMT
== END ==
LOC: M.PC 07:53
DX: M54.5 Low back pain (principal); E11.9 Type 2 diabetes mellitus without complications; I10 Essential (primary) hypertension; I25.10 Atherosclerotic heart disease of native coronary artery without angina pectoris; K21.9 Gastro-esophageal reflux disease without esophagitis; Z95.5 Presence of coronary angioplasty implant and graft

== ENCOUNTER → 2018-01-27 | Outpatient (CLI) | payer MEDICARE, OTHER ==
--- NOTE | 2018-02-04 16:41 | PAINCON ---
[address] [address] PAIN MANAGEMENT CONSULTATION Name: KARLOSMOLLY Room: [facility] BarbaraFrantz#: [id number] Admission: 01/27/18 Attend Phys: Nicolle Tate MD Discharge: Date of : 37 Report #: [id number] THIS REPORT FOR: //name// CC: Beth Tate DATE OF SERVICE: 01/27/2018 CHIEF COMPLAINT: Pain in the left hip area. FOLLOWUP HISTORY: The patient is an 82-year-old gentleman who has been seen in the pain clinic because of chronic pain and discomfort in his low back area back area. He has been experiencing pain in the left hip area. Palpation in this area causes reproduction of his pain. Lifting his left leg is limited somewhat because of the pain involving the left hip muscle area. He has stopped taking his Plavix. He has not taken for the last 7 days. He has returned to the pain clinic for trigger point injections to the affected area of his left iliac crest area. He has had no complications since being off the Plavix medication. ALLERGIES: VICODIN caused some hallucinations and side effects. CURRENT MEDICATIONS: Aspirin 81 mg, Plavix 75 mg. The patient has stopped taking this medication, Proscar 5 mg daily, folic acid 1 mg daily, Neurontin 300 mg b.i.d., melatonin 3 mg at bedtime, Lopressor 25 mg, Pravachol 40 mg, Altace 2.5 mg, Janumet 5/150, turmeric 500 mg, multivitamins, Zetia. PAIN CLINIC ASSESSMENT: 1. The patient has not been treated for osteoarthritis, but he does have some arthritic change in his back by MRI evaluation. 2. Height 5 feet 9 inches, weight 177 pounds, BMI is 26. 3. Vital signs: Blood pressure 126/69, heart rate 70, respiratory rate 16, room air saturation is 95%, temperature 97.8. Pain intensity 7-8/10. 4. Fall risk. The patient has not fallen in the last 3 months. 5. Blood thinner. He is on Plavix and has stopped taking this medication prior to his procedure. 6. History of hypertension. He has been treated for hypertension. 7. Opioids greater than 6 weeks. The patient is not on a regular opioid medication. 8. Risk assessment tool. 9. Functional assessment tool. 10. Recreational drug use. The patient denies use of recreational drugs. 11. Tobacco: The patient denies use of tobacco at this juncture. 12. Alcohol: The patient denies frequent use of alcoholic beverages. PHYSICAL EXAMINATION: GENERAL: The patient is a well-developed, well-[place] [address] PAIN MANAGEMENT CONSULTATION Name: MOLLY EVERETT Room: [facility]#: [id number] Admission: 01/27/18 Attend Phys: Nicolle Tate MD Discharge: Date of : 37 Report #: [id number] his stated age. He is alert and oriented x 3. His affect is appropriate. Speech is fluent. HEENT: Normocephalic, atraumatic. Extraocular eye muscles intact. Sclerae nonicteric. The patient is wearing glasses. He has good range of motion of his neck. LUNGS: Clear to auscultation without rhonchi. HEART: Regular rate. ABDOMEN: Nontender. MUSCULOSKELETAL: Without significant scoliosis, kyphosis or lordosis. Upper extremity muscle strength is judged to be 5/5 for the major muscle groups. Lower extremity strength is 4+5 on the left side, 5+5 on right lower extremity. Palpation near the iliac crest on the left side causes the patient to complain of pain and discomfort with reproduction of pain, which is limiting his ability to engage in activities. The patient has some difficulty lifting his left leg because of pain and discomfort over the iliac crest on the left. He is unable to lift his left leg and cross it over the right leg. IMPRESSION: 1. Myofascial pain over the left iliac crest. 2. Type 2 diabetes. 3. 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 4. History of diverticulitis. 5. History of peptic ulcer disease. 6. Gastroesophageal reflux. 7. Hypertension. RECOMMENDATIONS: We discussed treatment options with the patient. At this juncture, he has returned to the pain clinic. He has stopped taking his Plavix in anticipation of undergoing a trigger point injection over the iliac crest area. PROCEDURE NOTE: The patient was taken to the procedure room. He was then placed in the right decubitus position with his left hip free. This area was then treated with a chlorhexidine solution and allowed to dry. Palpation in the area of the mid portion of the iliac crest reproduce pain and discomfort. After palpating this area, a 25-gauge needle was then advanced to the area of the iliac crest bone. After touching the bone, the patient states that there was a reproduction of pain and discomfort. Total of 10 mL of 0.5% bupivacaine and 40 mg triamcinolone was injected. After 5 minutes, the patient noticed improvement in his pain and discomfort. An additional area approximately 1 inch further back on the iliac bone was palpated. Reproduction of more of his discomfort was noted. A total of 10 mL of 0.5% bupivacaine and 40 mg triamcinolone was injected. The patient tolerated the procedure well. He noted improvement in his pain. His pain decreased from 7-8 at the time of his initial visit to 1 at the time of discharge. He will follow up in the future. [place] [address] PAIN MANAGEMENT CONSULTATION Name: MOLLY EVERETT Room: [facility]#: [id number] Admission: 01/27/18 Attend Phys: Nicolle Tate MD Discharge: Date of : 37 Report #: [id number] Plavix medication. Hopefully, this continues to improve his pain situation and he is able to continue to improve over time. <ELECTRONICALLY SIGNED> By: Nicolle Tate MD 02/04/18 1641 [id number]. Moustapha Tate MD /nt
== END | disposition home or self-care (01) ==
LOC: M.PC 04:50
DX: M79.1 Myalgia (principal); E11.9 Type 2 diabetes mellitus without complications; I25.10 Atherosclerotic heart disease of native coronary artery without angina pectoris; I21.3 ST elevation (STEMI) myocardial infarction of unspecified site; Z95.5 Presence of coronary angioplasty implant and graft; K21.9 Gastro-esophageal reflux disease without esophagitis; I10 Essential (primary) hypertension; Z79.899 Other long term (current) drug therapy; Z88.8 Allergy status to other drugs, medicaments and biological substances